=== PATIENT | female | born 1985 | race African-American/Black ===

== ENCOUNTER 2019-09-11 14:09 | Emergency (ER) | payer OTHER ==
[~2019-09-11] VITALS: Ht 185.4 cm; Wt 79.4 kg
== END 2019-09-11 20:41 | disposition home or self-care (01) ==
LOC: ER 14:09
DX: O20.0 Threatened abortion (principal)

== ENCOUNTER 2019-09-13 07:11 | Outpatient (CLI) | payer OTHER | END 2019-09-13 07:18 | disposition home or self-care (01) | LOC: LAB 07:11 | DX: O20.0 Threatened abortion (principal) ==

== ENCOUNTER 2020-12-30 13:43 | Emergency (ER) | payer OTHER ==
[~2020-12-30] VITALS: Ht 188 cm; Wt 81.6 kg
== END 2020-12-30 17:22 | disposition home or self-care (01) ==
LOC: ER 13:43
DX: B34.9 Viral infection, unspecified (principal); Z03.818 Encounter for observation for suspected exposure to other biological agents ruled out; R53.81 Other malaise

== ENCOUNTER 2021-05-17 18:01 | Emergency (ER) | payer OTHER ==
[~2021-05-17] VITALS: Ht 185.4 cm; Wt 83.5 kg
[2021-05-17] MEDS ORDERED: MEDROXYPROGESTER5 MG PO (21:45)
== END 2021-05-17 22:02 | disposition home or self-care (01) ==
LOC: ER 18:01
DX: N93.8 Other specified abnormal uterine and vaginal bleeding (principal); N83.202 Unspecified ovarian cyst, left side; N83.201 Unspecified ovarian cyst, right side

== ENCOUNTER 2021-08-13 06:51 | Emergency (ER) | payer OTHER ==
[~2021-08-13] VITALS: Ht 182.9 cm; Wt 83.5 kg
[~2021-08-13 06:51] MED LIST: MEDROXYPROGESTER5 MG PO
== END 2021-08-13 11:25 | disposition home or self-care (01) ==
LOC: ER 06:51
DX: M25.50 Pain in unspecified joint (principal); R70.0 Elevated erythrocyte sedimentation rate

== ENCOUNTER 2021-10-11 11:38 | Emergency (ER) | payer OTHER ==
[~2021-10-11] VITALS: Ht 188 cm; Wt 81.6 kg
== END 2021-10-11 17:15 | disposition home or self-care (01) ==
LOC: ER 11:38
DX: J06.9 Acute upper respiratory infection, unspecified (principal); Z20.822 Contact with and (suspected) exposure to COVID-19

== ENCOUNTER 2021-12-11 12:36 | Emergency (ER) | payer OTHER ==
[~2021-12-11] VITALS: Ht 188 cm; Wt 84.4 kg
== END 2021-12-11 17:29 | disposition home or self-care (01) ==
LOC: ER 12:36
DX: M25.59 Pain in other specified joint (principal); D64.9 Anemia, unspecified

== ENCOUNTER 2022-01-21 19:43 | Emergency (ER) | payer OTHER ==
[~2022-01-21] VITALS: Ht 188 cm; Wt 81.6 kg
[2022-01-21] MEDS ORDERED: PEPCID AC20 MG PO (21:35)
[2022-01-21] MEDS ORDERED: ONDANSETRON ODT8 MG PO (21:35)
== END 2022-01-21 21:58 | disposition home or self-care (01) ==
LOC: ER 19:43
DX: K52.9 Noninfective gastroenteritis and colitis, unspecified (principal); Z20.822 Contact with and (suspected) exposure to COVID-19

== ENCOUNTER 2023-02-10 15:03 | Emergency (ER) | payer OTHER ==
[~2023-02-10] VITALS: Ht 188 cm; Wt 84.4 kg
[~2023-02-10 15:03] MED LIST changes: +ONDANSETRON ODT8 MG PO; +PEPCID AC20 MG PO
== END 2023-02-10 19:36 | disposition home or self-care (01) ==
LOC: ER 15:03
DX: J10.1 Influenza due to other identified influenza virus with other respiratory manifestations (principal); Z20.822 Contact with and (suspected) exposure to COVID-19

== ENCOUNTER 2023-05-15 09:57 | Emergency (ER) | payer OTHER ==
[~2023-05-15] VITALS: Ht 188 cm; Wt 86.2 kg
[2023-05-15] MEDS ORDERED: FOLIC ACID20 MG PO (10:56)
== END 2023-05-15 14:28 | disposition home or self-care (01) ==
LOC: ER 09:59
DX: J00 Acute nasopharyngitis [common cold] (principal); Z20.822 Contact with and (suspected) exposure to COVID-19